=== PATIENT | male | born 1970 | race Caucasian/White ===

== ENCOUNTER 2020-06-02 09:56 | Outpatient (CLI) | payer BC, SELFPAY ==
[2020-06-02 10:20] LABS: Basophils Percent Auto 0.5 % (0.2-1.2); Eosinophils Absolute Auto 0.3 K/mm3 (0-0.3); Eosinophils Percent Auto 4.9 % (0-4.4); Hematocrit 41.6 % (42.0-52.0); Hemoglobin 13.9 g/dL (14.0-18.0); Immature Granulocyte Absolute 0.02 K/mm3 (0.00-0.031); Immature Granulocyte Percent A 0.4 % (0-0.5); Lymphocytes Absolute Auto 1.19 K/mm3 (0.9-3.2); Mean Corpuscular HGB Conc 33.4 g/dl (32-36); Mean Corpuscular Hemoglobin 30.5 pg (26-34); Mean Corpuscular Volume 91.4 fl (80-100); Mean Platelet Volume 8.7 fl (7.4-10.4); Monocytes Absolute Auto 0.4 K/mm3 (0.1-0.6); Monocytes Percent Auto 6.3 % (2.6-8.5); Neutrophils Absolute Auto 3.8 K/mm3 (1.3-6.7); Neutrophils Percent Auto 66.9 % (45.5-73.1); Platelet Count Result 271 k/mm3 (150-375); Red Blood Count 4.55 M/mm3 (4.6-6.20); Red Cell Distribution Width 12.8 % (11.5-14.5); White Blood Count 5.7 K/mm3 (4.5-10.0)
[2020-06-02 12:31] LABS: Alanine Aminotransferase 74 U/L (4-50); Albumin Level 4.8 g/dL (3.5-5.1); Alkaline Phosphatase 76 U/L (38-126); Aspartate Amino Transferase 55 U/L (17-59); Bilirubin,Total 0.5 mg/dL (0.2-1.3); Blood Urea Nitrogen 15 mg/dL (9-20); Calcium 9.4 mg/dL (8.4-10.2); Carbon Dioxide 25 mmol/L (22-30); Chloride 104 mmol/L (98-107); Estimated Glomerular Filt Rate > 60; Glucose 115 mg/dL (75-110); Potassium 4.4 mmol/L (3.4-5.0); Sodium 138 mmol/L (137-145)
[2020-06-02 13:33] LABS: Folic Acid > 20.0 ng/mL (2.76->20)
== END 2020-06-02 09:57 | disposition home or self-care (01) ==
PROVIDERS: PCP Internal Medicine; Visit Provider Internal Medicine Hematology & Oncology
DX: C76.0 Malignant neoplasm of head, face and neck (principal)
CPT/HCPCS: 36415; 80053; 82607; 82746; 85025

== ENCOUNTER → 2020-10-18 08:57 | Outpatient (CLI) | payer BC, SELFPAY ==
--- NOTE | ~2020-10-18 | CT_ITS ---
EXAMINATION: CT soft tissue neck chest w DATE: 10/18/2020 09:49 INDICATION: Base of tongue cancer. TECHNIQUE: Computed tomography (CT) of the neck and chest was performed with 75 mL Omnipaque-350 intr avenous contrast. Automated exposure control and iterative reconstruction technique were employed. Th e dose-length product was 1010.05 mGy-cm. COMPARISON: Neck CT 11/10/2019, neck and chest CT 08/19/2018 FINDINGS: NECK CT: There are surgical clips in right neck. There are no pathologically enlarged lymph nodes. Th ere is fat stranding of the neck, likely changes of radiation therapy. There is 0% stenosis of the pr oximal internal carotid arteries relative to normal distal artery lumen diameters. The mastoid air ce lls are normal. There is mild mucosal thickening in the ethmoid sinuses. There is mild cervical spond ylosis. CHEST CT: There is mild atelectasis in the lungs. There is a 6 mm nodule in right lower lobe, stable from 08/19/2018 consistent with granulomatous disease. No pleural effusion. The heart size is normal. No pericardial effusion. There is mild thoracic spondylosis. IMPRESSION: 1. No evidence of metastatic disease. Reviewed, dictated and finalized at location A. 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
== END ==
PROVIDERS: PCP Internal Medicine; Visit Provider Otolaryngology
DX: Z85.818 Personal history of malignant neoplasm of other sites of lip, oral cavity, and pharynx (principal)
CPT/HCPCS: 70491; 71260; Q9967

== ENCOUNTER 2020-11-01 10:28 | Outpatient (CLI) | payer BC, SELFPAY ==
[2020-11-01 10:43] LABS: Basophils Percent Auto 0.5 % (0.2-1.2); Eosinophils Absolute Auto 0.3 K/mm3 (0-0.3); Eosinophils Percent Auto 5.1 % (0-4.4); Hematocrit 41.4 % (42.0-52.0); Hemoglobin 13.9 g/dL (14.0-18.0); Immature Granulocyte Absolute 0.01 K/mm3 (0.00-0.031); Immature Granulocyte Percent A 0.2 % (0-0.5); Lymphocytes Absolute Auto 1.38 K/mm3 (0.9-3.2); Lymphocytes Percent Auto 24.2 % (18.3-44.2); Mean Corpuscular HGB Conc 33.6 g/dl (32-36); Mean Corpuscular Hemoglobin 31.1 pg (26-34); Mean Corpuscular Volume 92.6 fl (80-100); Mean Platelet Volume 8.7 fl (7.4-10.4); Monocytes Absolute Auto 0.3 K/mm3 (0.1-0.6); Monocytes Percent Auto 5.3 % (2.6-8.5); Neutrophils Absolute Auto 3.7 K/mm3 (1.3-6.7); Neutrophils Percent Auto 64.7 % (45.5-73.1); Platelet Count Result 263 k/mm3 (150-375); Red Blood Count 4.47 M/mm3 (4.6-6.20); Red Cell Distribution Width 12.6 % (11.5-14.5); White Blood Count 5.7 K/mm3 (4.5-10.0)
[2020-11-01 12:29] LABS: Alanine Aminotransferase 89 U/L (4-50); Albumin Level 4.4 g/dL (3.5-5.1); Alkaline Phosphatase 70 U/L (38-126); Anion Gap 9 mmol/L (8-16); Aspartate Amino Transferase 61 U/L (17-59); Bilirubin,Total 0.6 mg/dL (0.2-1.3); Blood Urea Nitrogen 12 mg/dL (9-20); Calcium 9.4 mg/dL (8.4-10.2); Carbon Dioxide 29 mmol/L (22-30); Chloride 103 mmol/L (98-107); Estimated Glomerular Filt Rate > 60; Glucose 126 mg/dL (75-110); Potassium 4.2 mmol/L (3.4-5.0); Sodium 141 mmol/L (137-145)
[2020-11-01 13:36] LABS: Folic Acid > 20.0 ng/mL (2.76->20); Vitamin B12 > 1000.0 pg/mL (239-931)
== END 2020-11-01 10:29 | disposition home or self-care (01) ==
LOC: ANHLAB 10:30
PROVIDERS: PCP Internal Medicine; Visit Provider Internal Medicine Hematology & Oncology
DX: C76.0 Malignant neoplasm of head, face and neck (principal)
CPT/HCPCS: 36415; 80053; 82607; 82746; 85025

== ENCOUNTER 2021-05-14 15:12 | Outpatient (CLI) | payer BC, SELFPAY ==
[2021-05-14 15:27] LABS: Basophils Percent Auto 0.6 % (0.2-1.2); Eosinophils Absolute Auto 0.3 K/mm3 (0-0.3); Eosinophils Percent Auto 4.8 % (0-4.4); Hematocrit 42.2 % (42.0-52.0); Hemoglobin 14.2 g/dL (14.0-18.0); Immature Granulocyte Absolute 0.02 K/mm3 (0.00-0.031); Immature Granulocyte Percent A 0.3 % (0-0.5); Mean Corpuscular HGB Conc 33.6 g/dl (32-36); Mean Corpuscular Hemoglobin 30.9 pg (26-34); Mean Corpuscular Volume 91.9 fl (80-100); Mean Platelet Volume 8.4 fl (7.4-10.4); Monocytes Absolute Auto 0.4 K/mm3 (0.1-0.6); Monocytes Percent Auto 5.2 % (2.6-8.5); Neutrophils Absolute Auto 4.6 K/mm3 (1.3-6.7); Neutrophils Percent Auto 65.1 % (45.5-73.1); Platelet Count Result 269 k/mm3 (150-375); Red Blood Count 4.59 M/mm3 (4.6-6.20); Red Cell Distribution Width 12.2 % (11.5-14.5); White Blood Count 7.1 K/mm3 (4.5-10.0)
[2021-05-14 15:30] LABS: Blood Urea Nitrogen 12 mg/dL (8-26); Carbon Dioxide 26 mmol/L (22-30); Chloride 103 mmol/L (98-109); Estimated Glomerular Filt Rate > 60; Glucose 112 mg/dL (70-105); Potassium 3.9 mmol/L (3.5-4.9); Sodium 143 mmol/L (138-146)
[2021-05-14 16:44] LABS: Alanine Aminotransferase 41 U/L (4-50); Albumin Level 4.5 g/dL (3.5-5.1); Alkaline Phosphatase 71 U/L (38-126); Anion Gap 9 mmol/L (8-16); Aspartate Amino Transferase 37 U/L (17-59); Bilirubin,Total 0.4 mg/dL (0.2-1.3); Blood Urea Nitrogen 12 mg/dL (9-20); Calcium 9.4 mg/dL (8.4-10.2); Carbon Dioxide 26 mmol/L (22-30); Chloride 106 mmol/L (98-107); Estimated Glomerular Filt Rate > 60; Glucose 109 mg/dL (75-110); Potassium 4.2 mmol/L (3.4-5.0); Sodium 141 mmol/L (137-145)
== END 2021-05-14 15:13 | disposition home or self-care (01) ==
LOC: ANHLAB 15:15
PROVIDERS: PCP Internal Medicine; Visit Provider Internal Medicine Hematology & Oncology
DX: C76.0 Malignant neoplasm of head, face and neck (principal)
CPT/HCPCS: 36415; 80048; 80053; 85025

== ENCOUNTER 2021-06-06 12:30 | Outpatient (RCR) | payer BC, SELFPAY ==
--- NOTE | 2021-05-17 11:14 | PTOPEVAL ---
PHYSICAL THERAPY EVALUATION AND PLAN OF CARE 05-17-21 Thank you for referring Robert Grimaldo to [facility] for the diagnosis of BPPV/vestibular rehab. Robert is scheduled to be seen for therapy? 1-2 x/week for weeks. Please review, sign, date and return this plan of care MK. I agree with and certify that the following plan of care is medically necessary. 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 Cardiovascular History Hx Hypercholesterolemia Yes: meds Respiratory History Hx Respiratory Disorders No Significant History Gastrointestinal History Hx Gastrointestinal Disorders No Significant History Musculoskeletal History Hx Arthritis Yes: B hip pain and arthritis Hx Other Musculoskeletal Disorders Yes: pain in neck and shoulders from cancer surgery Endocrine History Hx Hypothyroidism Yes: meds HEENT History Hx Other HEENT Disorders Yes: 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 Other History Hx Cancer Yes: excision of R neck cancer - radiation and chemo therapy Hx Radiation Therapy Yes Hx Other Medical Conditions Yes: lymphedema of head and neck Evaluation Information Problem Diagnosis BPPV/ vestibular therapy Onset March 2021 Prior Level of Function Activity Level (Last 3 Months) Occupation not working outside of home Home Setting Living Situation With Spouse Comments Additional Prior Level of Function due to dizziness, cannot bend Comments over to do yard work, have to be careful with walking and doing home activities Pain Assessment Timing of Pain Assessment Timing of Pain Assessment Assessment Pain Scale Pain Scale Used Numeric (1 - 10) Self Report Pain Assessment Bilateral Neck Reported Pain Level 4 Pain Frequency Chronic,Continuous Other Pain Description charley horse and pain in neck Pain Score Pain Score 4: Self Report Additional Pain Score Comments go to chiropractor for neck and shoulder pain; follow with pain management for
--- NOTE | 2021-06-08 08:23 | PCPTNOTE ---
LATE ENTRY: 06-06-21: Discussed pt with Mei Perez PTA. Talked with pt, he stated vertigo symptoms have resolved; will hold PT and cancel his appointments; his chart will be kept open and he is to call for additional treatments if needed prior to end of plan of care. Robert agreed to this.
--- NOTE | 2021-06-08 08:25 | PCPTNOTE ---
Mr. Grimaldo has received PT here in the past for lymphedema of head, neck and face. He continues to have issues with this and is not able to manage the lymphedema on his own at home. At the last session of PT he was educated on self massage, home exercises, skin care, compression garment and management of his chronic condition. He would benefit from a Flexitouch home intermittent compression pump to assist in managing his lymphedema. There is not a basic pump for the head/neck and face, so he would require the Flexitouch unit. Please contact me for any further questions. Kimberly Lugo, PT, [facility], [facility] [phone]
--- NOTE | 2021-06-29 14:21 | PCPTNOTE ---
PHYSICAL THERAPY DISCHARGE 06-29-21 Attending Provider: Lamin Milligan MD Patient:Robert Grimaldo Date of :1970 Mr. Grimaldo has received 4 PT sessions, for the diagnosis of vestibular rehab, from May 17 to June 06. At the last session, he stated he no longer had dizziness and wanted to cancel his remaining appointments, and he was to call if there were any further needs. No further contact from him, so he will be discharged at this time. The goals were achieved. Thank you for referring Robert to [facility]. Please review, sign, date and return this discharge summary MK. I have been updated about the patient's current status and I agree with discharge from the above service at this time. Referring Physician Date
== END 2021-07-04 15:26 | disposition home or self-care (01) ==
LOC: ANHPT 12:30
PROVIDERS: PCP Internal Medicine; Visit Provider Otolaryngology
DX: H81.10 Benign paroxysmal vertigo, unspecified ear (principal)
CPT/HCPCS: 97110; 97140; 97161

== ENCOUNTER → 2021-09-03 09:34 | Outpatient (CLI) | payer BC, SELFPAY ==
--- NOTE | ~2021-09-03 | XR_ITS ---
XR_[id number]_CR DATE: 09/03/2021 09:52 INDICATION: Neck pain TECHNIQUE: AP, open-mouth, lateral, swimmer views COMPARISON: 05/10/2019 cervical spine FINDINGS: C1 and C2 are normally aligned and the odontoid process is intact. No fracture or dislocation or locked facet or prevertebral soft tissue swelling. There is mild degenerative change. IMPRESSION: Mild degenerative change; no fracture or dislocation Reviewed, dictated and finalized at Location A. Reviewed, dictated and finalized at location B.
== END ==
PROVIDERS: PCP Internal Medicine; Visit Provider Nurse Practitioner Family
DX: M54.2 Cervicalgia (principal)
CPT/HCPCS: 72040

== ENCOUNTER 2021-10-29 09:28 | Outpatient (CLI) | payer BC, SELFPAY ==
--- NOTE | ~2021-10-29 | CT_ITS ---
EXAMINATION: CT soft tissue neck w con DATE: 10/29/2021 10:13 INDICATION: Head and neck cancer. TECHNIQUE: Computed tomography (CT) of the neck was performed with 75 mL Omnipaque-350 intravenous co ntrast. Automated exposure control and iterative reconstruction technique were employed. The dose-lobo gth product was 590.17 mGy-cm. COMPARISON: Neck CT 10/18/2020 FINDINGS: There are surgical clips in right neck. There is fat stranding in the neck, consistent with changes of surgery and radiation therapy. There is plaque in the proximal internal carotid arteries with 0% stenosis relative to normal distal artery lumen diameters. There is mild mucosal thickening i n the ethmoid sinuses. There is a small right mastoid effusion. There is mild cervical spondylosis. IMPRESSION: 1. No evidence of metastatic disease. Reviewed, dictated and finalized at location A. 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
== END 2021-10-29 09:29 | disposition home or self-care (01) ==
PROVIDERS: PCP Internal Medicine; Visit Provider Internal Medicine Hematology & Oncology
DX: C76.0 Malignant neoplasm of head, face and neck (principal)
CPT/HCPCS: 70491; Q9967

== ENCOUNTER 2021-11-07 09:47 | Outpatient (CLI) | payer BC, SELFPAY ==
[2021-11-07 10:12] LABS: Basophils Absolute Auto 0.1 K/mm3 (0.0-0.1); Basophils Percent Auto 0.9 % (0.2-1.2); Eosinophils Absolute Auto 0.3 K/mm3 (0-0.3); Eosinophils Percent Auto 6.2 % (0-4.4); Hemoglobin 14.1 g/dL (14.0-18.0); Immature Granulocyte Absolute 0.01 K/mm3 (0.00-0.031); Immature Granulocyte Percent A 0.2 % (0-0.5); Lymphocytes Absolute Auto 1.15 K/mm3 (0.9-3.2); Lymphocytes Percent Auto 21.5 % (18.3-44.2); Mean Corpuscular HGB Conc 32.8 g/dl (32-36); Mean Corpuscular Hemoglobin 31.4 pg (26-34); Mean Corpuscular Volume 95.8 fl (80-100); Mean Platelet Volume 8.4 fl (7.4-10.4); Monocytes Absolute Auto 0.3 K/mm3 (0.1-0.6); Neutrophils Absolute Auto 3.5 K/mm3 (1.3-6.7); Neutrophils Percent Auto 65.2 % (45.5-73.1); Platelet Count Result 271 k/mm3 (150-375); Red Blood Count 4.49 M/mm3 (4.6-6.20); Red Cell Distribution Width 12.3 % (11.5-14.5); White Blood Count 5.4 K/mm3 (4.5-10.0)
[2021-11-07 10:16] LABS: Blood Urea Nitrogen 15 mg/dL (8-26); Carbon Dioxide 27 mmol/L (22-30); Chloride 103 mmol/L (98-109); Estimated Glomerular Filt Rate > 60; Glucose 125 mg/dL (70-105); Potassium 4.4 mmol/L (3.5-4.9); Sodium 143 mmol/L (138-146)
[2021-11-07 21:20] LABS: Alanine Aminotransferase 60 U/L (4-50); Albumin Level 4.4 g/dL (3.5-5.1); Alkaline Phosphatase 75 U/L (38-126); Anion Gap 12 mmol/L (8-16); Aspartate Amino Transferase 50 U/L (17-59); Bilirubin,Total 0.5 mg/dL (0.2-1.3); Blood Urea Nitrogen 16 mg/dL (9-20); Calcium 9.1 mg/dL (8.4-10.2); Carbon Dioxide 24 mmol/L (22-30); Chloride 104 mmol/L (98-107); Estimated Glomerular Filt Rate > 60; Glucose 128 mg/dL (65-110); Potassium 4.5 mmol/L (3.4-5.0); Sodium 140 mmol/L (137-145)
== END 2021-11-07 09:48 | disposition home or self-care (01) ==
LOC: ANHLAB 09:49
PROVIDERS: Visit Provider Internal Medicine Hematology & Oncology
DX: C76.0 Malignant neoplasm of head, face and neck (principal)
CPT/HCPCS: 36415; 80053; 85025

== ENCOUNTER → 2021-11-08 09:18 | Outpatient (CLI) | payer BC, SELFPAY ==
--- NOTE | ~2021-11-08 | CT_ITS ---
EXAMINATION: CT abdomen wo con DATE: 11/08/2021 09:32 INDICATION: Left upper quadrant and epigastric pain TECHNIQUE: Computed tomography (CT) of the abdomen was performed without intravenous contrast. The do se-length product (DLP) was 835.39 mGy-cm. Automated exposure control and iterative reconstruction te chnique were employed. COMPARISON: 06/08/2019 FINDINGS: A stable 6 mm nodule of right lower lobe is consistent with old granulomatous disease. Ther e is mild atelectasis of the visualized lung bases. The heart size is normal. The liver, spleen, panc reas, gallbladder, and adrenal glands are normal. There are no pathologically enlarged abdominal lymp h nodes. There is no free intraperitoneal gas or evidence of bowel obstruction. IMPRESSION: 1. No CT correlate for the patient's symptoms. Reviewed, dictated and finalized at location A. 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
== END ==
PROVIDERS: PCP Internal Medicine; Visit Provider Internal Medicine
DX: R10.9 Unspecified abdominal pain (principal)
CPT/HCPCS: 74150

== ENCOUNTER 2022-05-08 09:04 | Outpatient (CLI) | payer BC, SELFPAY ==
[2022-05-08 09:24] LABS: Basophils Percent Auto 0.4 % (0.2-1.2); Eosinophils Absolute Auto 0.3 K/mm3 (0-0.3); Eosinophils Percent Auto 4.2 % (0-4.4); Hematocrit 41.1 % (42.0-52.0); Hemoglobin 13.6 g/dL (14.0-18.0); Immature Granulocyte Absolute 0.03 K/mm3 (0.00-0.031); Immature Granulocyte Percent A 0.4 % (0-0.5); Lymphocytes Absolute Auto 1.25 K/mm3 (0.9-3.2); Lymphocytes Percent Auto 18.7 % (18.3-44.2); Mean Corpuscular HGB Conc 33.1 g/dl (32-36); Mean Corpuscular Hemoglobin 30.8 pg (26-34); Mean Corpuscular Volume 93.2 fl (80-100); Mean Platelet Volume 8.8 fl (7.4-10.4); Monocytes Absolute Auto 0.4 K/mm3 (0.1-0.6); Monocytes Percent Auto 6.4 % (2.6-8.5); Neutrophils Absolute Auto 4.7 K/mm3 (1.3-6.7); Neutrophils Percent Auto 69.9 % (45.5-73.1); Platelet Count Result 267 k/mm3 (150-375); Red Blood Count 4.41 M/mm3 (4.6-6.20); Red Cell Distribution Width 12.6 % (11.5-14.5); White Blood Count 6.7 K/mm3 (4.5-10.0)
[2022-05-08 09:28] LABS: Blood Urea Nitrogen 13 mg/dL (8-26); Carbon Dioxide 25 mmol/L (22-30); Chloride 104 mmol/L (98-109); Estimated Glomerular Filt Rate > 60; Glucose 115 mg/dL (70-105); Sodium 141 mmol/L (138-146)
[2022-05-08 10:22] LABS: Alanine Aminotransferase 46 U/L (6-50); Albumin Level 4.4 g/dL (3.5-5.1); Alkaline Phosphatase 79 U/L (38-126); Anion Gap 6 mmol/L (8-16); Aspartate Amino Transferase 39 U/L (17-59); Bilirubin,Total 0.4 mg/dL (0.2-1.3); Blood Urea Nitrogen 13 mg/dL (9-20); Calcium 8.9 mg/dL (8.4-10.2); Carbon Dioxide 25 mmol/L (22-30); Chloride 107 mmol/L (98-107); Estimated Glomerular Filt Rate > 60; Glucose 113 mg/dL (65-110); Sodium 138 mmol/L (137-145)
== END 2022-05-08 09:05 | disposition home or self-care (01) ==
PROVIDERS: PCP Internal Medicine; Visit Provider Internal Medicine Hematology & Oncology
DX: C76.0 Malignant neoplasm of head, face and neck (principal)
CPT/HCPCS: 36415; 80047; 80053; 85025

== ENCOUNTER 2022-10-13 11:16 | Emergency (ER) | payer BC, SELFPAY ==
--- NOTE | ~2022-10-13 | XR_ITS ---
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 RESULT: Lines, tubes, and devices: None. Lungs and pleura: No focal consolidation or pneumothorax. Linear scar in the left lung base. Cardiomediastinal silhouette: Stable. Other: No acute osseous or upper abdominal finding. IMPRESSION: No acute cardiopulmonary process. Reviewed, dictated and finalized at location K. [place] WIRELESS SALES REPRESENTATIVE
--- NOTE | 2022-10-13 13:25 | ED.URI ---
HPI - URI/Sore Throat General Chief Complaint: Upper Respiratory Infection Stated Complaint: Fever,Sore Throat,Headache,Diarrhea Source: patient Mode of arrival: ambulatory Limitations: no limitations History of Present Illness HPI Narrative: 52-year-old male presents to [facility] with complaints of fevers to 102, sore throat, postnasal drip, runny nose, nasal congestion nonproductive cough for the past 3 days. Patient's was recently treated for a sinus infection. Patient has been taking [id number] DayQuil and NyQuil with minimal relief. Patient reports history of neck cancer which was diagnosed approximately 5 years ago. Patient denies shortness of breath, wheezing, nausea, vomiting or diarrhea. Patient denies recent trauma. Patient is nonsmoker. MD elicited complaint: fever, cough, rhinorrhea and nasal congestion Onset (ago): day(s) (3) Able to tolerate fluids by mouth: Yes Context: sick contacts Treatments prior to arrival: cold medicine Related Data Home Medications Medication Instructions Recorded Confirmed atorvastatin 10 mg tablet 10 mg PO DAILY 04/27/21 10/13/22 levothyroxine 50 mcg capsule 50 mcg PO DAILY 04/27/21 10/13/22 pregabalin 75 mg capsule (Lyrica) 75 mg PO TID 04/27/21 10/13/22 diclofenac sodium 75 mg 75 mg PO BID 06/07/21 10/13/22 tablet,delayed release omeprazole 40 mg capsule,delayed 40 mg PO DAILY 06/07/21 10/13/22 release tizanidine 2 mg tablet 2 mg PO DAILY 10/13/22 10/13/22 Allergies Allergy/AdvReac Type Severity Reaction Status Date / Time No Known Allergies Allergy Verified 10/13/22 12:59 Review of Systems Constitutional: Constitutional: Denies chills, Denies fatigue, Reports fever(s) and Denies weakness ENT: Denies vertigo, Denies dizziness, Denies epistaxis and Reports nasal congestion Respiratory: Respiratory: Reports cough, Denies dyspnea and Denies wheezing Gastrointestinal: Gastrointestinal: Denies abdominal pain, Denies diarrhea, Denies nausea and Denies vomiting Integumentary/Breasts: Skin/Breast: Denies rash Allergic/Immunologic: Allergic/Immunologic: Denies lip swelling, Denies throat swelling, Denies tongue swelling and Denies wheezing PMFSH Past Medical History Medical History History of basal cell carcinoma History of squamous cell carcinoma Family History Family History Mother Breast cancer Father Malignant tumor of colon Social History Social History Smoking status: Former smoker Smoking end date: 11/24/05 Alcohol intake: never Comments At time of signature, I agree with nursing past medical, surgical, social and family history. There is no relevant family history pertinent to the presenting complaint. Exam Const: General: healthy appearing Nutritional Appearance: well nourished Orientation/consciousness: patient oriented x3 Limitations: no limitations HENMT: Ears: external ears normal and TM's normal bilaterally Face and sinus: normal facial exam Mouth: Yes Normal oral and palatal mucosa present Throat: posterior oropharynx normal and uvula midline Other: Mild bilateral nasal congestion noted Neck: Other: Healed scar noted to right-sided neck Resp: Effort & Inspection: normal respiratory effort and not labored Other: Very mild expiratory wheeze noted to right lower lobe Cardio: Rate: regular rate Rhythm: regular rhythm Heart sounds: no murmurs Skin: General skin exam: normal color Rashes: no rashes Wounds: no wounds Neuro: General: patient oriented x3 Speech: normal speech Gait exam (Neuro): Normal gait present Psych: Mental Status: mental status grossly normal Affect: normal affect Attitude: cooperative Course Course Level of Care: Express Care Visit Vital Signs Vital signs: Vital Signs Temperature 36.3 C L 10/13/22 13:31 Puls
[2022-10-13 13:31] VITALS: BP 137/90; PULSE 88; RESP 20; TEMP 36.3; O2SAT 98
== END 2022-10-13 14:30 | disposition home or self-care (01) ==
PROVIDERS: Emergency Provider Nurse Practitioner Family; PCP Internal Medicine
DX: U07.1 COVID-19 (principal); Z85.828 Personal history of other malignant neoplasm of skin; Z87.891 Personal history of nicotine dependence
CPT/HCPCS: 71046; 87426; 87804; 99213; C9803; G0463

== ENCOUNTER 2022-10-28 08:46 | Outpatient (CLI) | payer BC, SELFPAY ==
--- NOTE | ~2022-10-28 | CT_ITS ---
EXAMINATION: CT soft tissue neck w con DATE: 10/28/2022 09:17 INDICATION: Head and neck cancer. TECHNIQUE: Computed tomography (CT) of the neck was performed with 75 mL Omnipaque-350 intravenous co ntrast. Automated exposure control and iterative reconstruction technique were employed. The dose-lobo gth product was 621.68 mGy-cm. COMPARISON: CT cervical spine 10/29/2021, chest CT 10/18/20 FINDINGS: There is a 6 mm nodule in left lung upper lobe, new from . There is mild atelectasis bilaterally. There is a chronic 3 mm nodule in right upper lobe. There is a 6 mm nodule in right uppe r lobe that is new from 10/18/20 and not included on 10/29/21. Partially visualized is a 9 mm nodule i n left lower lobe, new from 10/18/2020. There are surgical clips in right neck. There are no patholog ically enlarged lymph nodes. There is mucosal thickening in the paranasal sinuses. There is 0% stenos is of the proximal internal carotid arteries relative to normal distal artery lumen diameters. There is a trace left mastoid effusion. There is mild cervical spondylosis. IMPRESSION: 1. Worsened pulmonary nodules measuring up to 9 mm, which may be infection or metastatic disease. Con telecommunicator supervisor noncontrast chest CT. Reviewed, dictated and finalized at location E. HMAKER APPRENTICE IMPRESSION: 1. Worsened pulmonary nodules measuring up to 9 mm, which may be infection or m etastatic disease. Consider noncontrast chest CT.
== END 2022-10-28 08:47 | disposition home or self-care (01) ==
PROVIDERS: PCP Internal Medicine; Visit Provider Internal Medicine Hematology & Oncology
DX: C76.0 Malignant neoplasm of head, face and neck (principal)
CPT/HCPCS: 70491; Q9967

== ENCOUNTER 2022-11-04 11:17 | Outpatient (CLI) | payer BC, SELFPAY ==
[2022-11-04 11:39] LABS: Basophils Percent Auto 0.7 % (0.2-1.2); Eosinophils Absolute Auto 0.3 K/mm3 (0-0.3); Eosinophils Percent Auto 4.5 % (0-4.4); Hematocrit 40.9 % (42.0-52.0); Hemoglobin 13.8 g/dL (14.0-18.0); Immature Granulocyte Absolute 0.02 K/mm3 (0.00-0.031); Immature Granulocyte Percent A 0.4 % (0-0.5); Lymphocytes Absolute Auto 1.34 K/mm3 (0.9-3.2); Lymphocytes Percent Auto 24.1 % (18.3-44.2); Mean Corpuscular HGB Conc 33.7 g/dl (32-36); Mean Corpuscular Hemoglobin 30.9 pg (26-34); Mean Corpuscular Volume 91.7 fl (80-100); Mean Platelet Volume 8.5 fl (7.4-10.4); Monocytes Absolute Auto 0.4 K/mm3 (0.1-0.6); Monocytes Percent Auto 7.2 % (2.6-8.5); Neutrophils Absolute Auto 3.5 K/mm3 (1.3-6.7); Neutrophils Percent Auto 63.1 % (45.5-73.1); Platelet Count Result 295 k/mm3 (150-375); Red Blood Count 4.46 M/mm3 (4.6-6.20); Red Cell Distribution Width 12.2 % (11.5-14.5); White Blood Count 5.6 K/mm3 (4.5-10.0)
[2022-11-04 11:47] LABS: Blood Urea Nitrogen 15 mg/dL (8-26); Carbon Dioxide 28 mmol/L (22-30); Chloride 104 mmol/L (98-109); Estimated Glomerular Filt Rate > 60; Glucose 106 mg/dL (70-105); Ionized Calcium (POC) 1.19 mmol/L (1.11-1.31); Potassium 4.4 mmol/L (3.5-4.9); Sodium 139 mmol/L (138-146)
[2022-11-04 12:39] LABS: Alanine Aminotransferase 33 U/L (6-50); Albumin Level 4.6 g/dL (3.5-5.1); Alkaline Phosphatase 85 U/L (38-126); Anion Gap 6 mmol/L (8-16); Aspartate Amino Transferase 34 U/L (17-59); Bilirubin,Total 0.6 mg/dL (0.2-1.3); Blood Urea Nitrogen 15 mg/dL (9-20); Carbon Dioxide 28 mmol/L (22-30); Chloride 102 mmol/L (98-107); Estimated Glomerular Filt Rate > 60; Glucose 106 mg/dL (65-110); Potassium 4.4 mmol/L (3.4-5.0); Sodium 136 mmol/L (137-145)
== END 2022-11-04 11:18 | disposition home or self-care (01) ==
LOC: ANHLAB 11:18
PROVIDERS: PCP Internal Medicine; Visit Provider Internal Medicine Hematology & Oncology
DX: C76.0 Malignant neoplasm of head, face and neck (principal)
CPT/HCPCS: 36415; 80047; 80053; 85025

== ENCOUNTER 2022-11-08 08:25 | Outpatient (CLI) | payer BC, SELFPAY ==
--- NOTE | ~2022-11-08 | CT_ITS ---
CT Scan of the Chest without Contrast: Clinical Indication: Lung mass Technique: Contiguous sections were acquired throughout the chest without intravenous contrast. Dose reduction technique was used on this scan by utilizing automated exposure control and iterative recon struction technique. The dose-length product (DLP) was 513.66 mGy-cm. COMPARISON: 10/18/2020 Findings: There is no evidence of any significant mediastinal, hilar or axillary lymphadenopathy. The mediastin al soft tissues appear normal. There is no evidence of pleural or pericardial effusion. Stable linear scarring right upper lobe. Stable 5 mm noncalcified pulmonary nodule in the right lower lobe (series 4 image 67). Additional linear scarring at the bilateral lung bases is similar to prior exam. Images through the upper abdomen reveal no abnormalities. Impression: No significant abnormality seen. 5 mm right lower lobe pulmonary nodule stable since 10/18/2020. Stability over this time intervals co mpatible with benignity. Reviewed, dictated and finalized at location [] PROFESSOR Impression: No significant abnormality seen. 5 mm right lower lobe pulmonary nodule stable since 10/18/2020. Stability over this time intervals compatible with benignity.
== END 2022-11-08 08:26 | disposition home or self-care (01) ==
PROVIDERS: PCP Internal Medicine; Visit Provider Internal Medicine Hematology & Oncology
DX: R91.8 Other nonspecific abnormal finding of lung field (principal)
CPT/HCPCS: 71250

== ENCOUNTER 2023-05-12 10:05 | Outpatient (CLI) | payer BC, SELFPAY ==
[2023-05-12 10:26] LABS: Basophils Percent Auto 0.8 % (0.2-1.2); Eosinophils Absolute Auto 0.3 K/mm3 (0-0.3); Eosinophils Percent Auto 5.6 % (0-4.4); Hemoglobin 14.6 g/dL (14.0-18.0); Immature Granulocyte Absolute 0.02 K/mm3 (0.00-0.031); Immature Granulocyte Percent A 0.4 % (0-0.5); Lymphocytes Absolute Auto 1.08 K/mm3 (0.9-3.2); Lymphocytes Percent Auto 21.4 % (18.3-44.2); Mean Corpuscular Volume 91.3 fl (80-100); Mean Platelet Volume 8.6 fl (7.4-10.4); Monocytes Absolute Auto 0.4 K/mm3 (0.1-0.6); Monocytes Percent Auto 7.7 % (2.6-8.5); Neutrophils Absolute Auto 3.2 K/mm3 (1.3-6.7); Neutrophils Percent Auto 64.1 % (45.5-73.1); Platelet Count Result 256 k/mm3 (150-375); Red Blood Count 4.71 M/mm3 (4.6-6.20); Red Cell Distribution Width 12.5 % (11.5-14.5)
[2023-05-12 16:11] LABS: Alanine Aminotransferase 44 U/L (6-50); Albumin Level 4.8 g/dL (3.5-5.1); Alkaline Phosphatase 87 U/L (38-126); Anion Gap 8 mmol/L (8-16); Aspartate Amino Transferase 43 U/L (17-59); Bilirubin,Total 0.8 mg/dL (0.2-1.3); Blood Urea Nitrogen 18 mg/dL (9-20); Calcium 8.9 mg/dL (8.4-10.2); Carbon Dioxide 27 mmol/L (22-30); Chloride 106 mmol/L (98-107); Estimated Glomerular Filt Rate > 60; Glucose 109 mg/dL (65-110); Potassium 4.2 mmol/L (3.4-5.0); Sodium 141 mmol/L (137-145)
[2023-05-12 17:26] LABS: Folic Acid > 20.0 ng/mL (2.76->20)
== END 2023-05-12 10:06 | disposition home or self-care (01) ==
LOC: ANHLAB 10:07
PROVIDERS: PCP Internal Medicine; Visit Provider Internal Medicine Hematology & Oncology
DX: C76.0 Malignant neoplasm of head, face and neck (principal)
CPT/HCPCS: 36415; 80053; 82607; 82746; 85025

== ENCOUNTER 2023-12-03 09:15 | Emergency (ER) | payer BC, SELFPAY ==
--- NOTE | ~2023-12-03 | XR_ITS ---
XR_[id number]_CR DATE: 12/03/2023 09:52 INDICATION: Fall 6 days ago. Left upper lateral rib pain with inspiration TECHNIQUE: PA chest. 3 views of the left ribs. COMPARISON: 10/13/2022 2 view chest FINDINGS: There is mild infiltrate or atelectasis in the mid and lower lung zones. Normal heart size. No pleural effusion or pneumothorax. No left rib fracture or bone destruction is detected. Degenerative spurring of the thoracic and lumbar spine. IMPRESSION: No rib fracture is detected Reviewed, dictated and finalized at Location A. Reviewed, dictated and finalized at location B. 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
[2023-12-03 09:36] VITALS: BP 153/88; PULSE 68; RESP 16; TEMP 36.3; O2SAT 98
--- NOTE | 2023-12-03 10:08 | ED.GENADULT ---
HPI - General Adult General Chief complaint: Extremity Injury, Upper Stated complaint: fall,lt rib pain Time Seen by Provider: 12/03/23 09:41 Source: patient and RN notes reviewed Mode of arrival: ambulatory Limitations: no limitations History of Present Illness HPI narrative: Patient presents today complaining of a trip and fall on a sidewalk 6 days ago and onto his left ribs with lingering pain to this area. He has localized pain to the left upper lateral ribs, more into the axilla area. Pain increases with deep breath, cough, sneezing. Currently rates pain 5/10 and has tried no medication for symptoms prior to arrival. Denies shortness of breath. Related Data Home Medications Medication Instructions Recorded Confirmed atorvastatin 10 mg tablet 10 mg PO DAILY 04/27/21 12/03/23 levothyroxine 50 mcg capsule 50 mcg PO DAILY 04/27/21 12/03/23 pregabalin 75 mg capsule (Lyrica) 75 mg PO TID 04/27/21 10/13/22 diclofenac sodium 75 mg 75 mg PO BID 06/07/21 12/03/23 tablet,delayed release omeprazole 40 mg capsule,delayed 40 mg PO DAILY 06/07/21 12/03/23 release tizanidine 2 mg tablet 2 mg PO DAILY 10/13/22 10/13/22 pregabalin 75 mg capsule mg 12/03/23 12/03/23 Allergies Allergy/AdvReac Type Severity Reaction Status Date / Time No Known Allergies Allergy Verified 12/03/23 09:36 Review of Systems Review of Systems: CONSTITUTIONAL: Denies body aches, fever, chills, or sweats. EYES: Denies visual changes, redness, or discharge. ENT: Denies rhinorrhea, congestion, sore throat, or otalgia. CARDIOVASCULAR: Denies chest pain, palpitations, or edema. RESPIRATORY: Denies cough or dyspnea.+ left rib pain GASTROINTESTINAL: Denies abdominal pain, nausea, vomiting, or diarrhea. GENITOURINARY: Denies dysuria or hematuria. SKIN: Denies rash, itching, or wounds. MUSCULOSKELETAL: Denies back pain, joint pain, or myalgia. NEUROLOGIC: Denies headache, numbness, tingling, or weakness. PSYCH: Denies depression or anxiety. [facility] Past Medical History Medical History History of basal cell carcinoma History of squamous cell carcinoma Family History Family History Mother Breast cancer Father Malignant tumor of colon Social History Social History Smoking status: Former smoker Smoking end date: 11/24/05 Alcohol intake: never Comments At time of signature, I have reviewed and agree with nursing past medical, surgical, social and family history unless otherwise noted. Please see nursing chart for further information. There is no relevant family history pertinent to the presenting complaint Exam Narrative: GENERAL: Well-appearing, well-nourished, and in no acute distress. HEAD: Normocephalic, atraumatic. EYES: EOMI. No redness or drainage. Conjunctivae normal. ENT: Mucous membranes pink and moist. NECK: Normal AROM. CHEST: No respiratory distress. Clear to auscultation. Point tenderness to the left lateral chest area, into the axilla. No crepitus, edema, ecchymosis, or erythema noted. HEART: Regular rate and rhythm. No murmur appreciated. Normal peripheral pulses. EXTREMITIES: Normal range of motion. No edema. SKIN: Warm, dry, no rash. Capillary refill normal. Normal skin turgor. NEURO: No focal deficits. Alert and oriented x3. Gait steady. PSYCH: Normal affect. No signs of depression or anxiety. Course Course Level of Care: Express Care Visit Vital Signs Vital signs: Vital Signs Temperature 97.4 F L 12/03/23 09:36 Pulse Rate 68 12/03/23 09:36 Respiratory Rate 16 12/03/23 09:36 Blood Pressure 153/88 H 12/03/23 09:36 Pulse Oximetry 98 12/03/23 09:36 Oxygen Delivery Room Air 12/03/23 09:36 Temperature 97.4 F L 12/03/23 09:36 Pulse Rate 68 12/03/23 09:36 Respiratory Rate 16 12/03/23 09:3
== END 2023-12-03 10:25 | disposition home or self-care (01) ==
PROVIDERS: Emergency Provider Nurse Practitioner; PCP Internal Medicine
DX: S20.212A Contusion of left front wall of thorax, initial encounter (principal); Z79.899 Other long term (current) drug therapy; Z85.828 Personal history of other malignant neoplasm of skin; Z87.891 Personal history of nicotine dependence; W01.0XXA Fall on same level from slipping, tripping and stumbling without subsequent striking against object, initial encounter
CPT/HCPCS: 71101; 99213; G0463

== ENCOUNTER 2024-05-17 01:35 | Day surgery (SDC) | payer BC, SELFPAY ==
[2024-04-29 12:18] VITALS: BMI 35.4
[2024-05-17 08:09] VITALS: BP 152/96; PULSE 82; RESP 16; TEMP 36.2; O2SAT 98; BMI 35.2
[2024-05-17] MEDS: LACTATED RINGERS 1,000 ML 150 ML IV CONT (08:17)
--- NOTE | 2024-05-17 08:45 | WPDANESEPPF ---
Anes - Initial Pre Proc Eval Procedure: Operation Date: 05/17/24 09:30 Proposed Procedures p Colonoscopy - Farhat Michelle MD Date/Time: 05/17/24 08:45 Surgeon: Farhat Michelle MD Pre Op Diagnosis: Fam. hx. colon CA Patient Data Age: 54 Gender: M Height: 1.75 m Weight: 108.3 kg Last Vital Signs Temp 97.1 F L 05/17/24 08:09 Pulse 82 05/17/24 08:09 Resp 16 05/17/24 08:09 BP 152/96 H 05/17/24 08:09 Pulse Ox 98 05/17/24 08:09 O2 Del Method Room Air 05/17/24 08:09 Allergies Allergy/AdvReac Type Severity Reaction Status Date / Time No Known Allergies Allergy Verified 05/17/24 08:07 Home Medications Medication Instructions Recorded Confirmed Type atorvastatin 10 mg tablet 10 mg PO DAILY 04/27/21 05/17/24 History levothyroxine 50 mcg capsule 50 mcg PO DAILY 04/27/21 05/17/24 History pregabalin 75 mg capsule (Lyrica) 75 mg PO TID 04/27/21 05/17/24 History diclofenac sodium 75 mg 75 mg PO BID 06/07/21 05/17/24 History tablet,delayed release omeprazole 40 mg capsule,delayed 40 mg PO DAILY 06/07/21 05/17/24 History release pilocarpine HCl 5 mg tablet 5 mg PO DAILY #30 tabs 05/09/22 05/17/24 Rx Patient hx anesthesia problems: none Family hx anesthesia problems: none Results Review: All pre-operative results and documents have been reviewed as part of the pre-operative evaluation. [facility] Past Medical History Medical History History of basal cell carcinoma History of squamous cell carcinoma Family History Family History Mother Breast cancer Father Malignant tumor of colon Social History Social History Smoking packs per day: 0.5 Smoking cigarettes per day: 10.0 Years smoked: 10 Smoking pack-years: 5.00 Smoking status: Former smoker Tobacco type: cigarettes Smoking end date: 11/24/05 Alcohol intake: never Living arrangements: with family Spiritual care concerns: No Anes - Eval Final PreProcedure Day of Procedure 05/17/24 08:45 Patient weight: obese Heart: regular rate and rhythm Lungs: clear to auscultation Airway: Mallampati scale class II Neurological: alert and oriented Last oral intake: >/= 8 hours ASA classification: II Emergent: no Anesthetic plan: proceed Anesthesia type and monitoring: general GIVS and standard monitoring Results Review: All pre-operative results and documents have been reviewed as part of the pre-operative evaluation. Informed Consent: The patient's anesthetic plan and its attendant risks and benefits were discussed with the patient/family/POA. Questions were solicited and answers provided to the satisfaction of the patient/family/POA.
--- NOTE | 2024-05-17 09:09 | PM.HPGS ---
History of Present Illness History of Present Illness Consent: Risks, benefits, and alternatives have been discussed and questions answered. Patient agrees to proceed with procedure. Chief complaint: Fam. hx. colon CA Narrative: Robert Grimaldo is a 54 year old male here for colonoscopy, last one 2018, father of colon cancer Review of Systems Review of Systems: All systems reviewed & are unremarkable except as noted in HPI and below PMFSH Past Medical History Medical History (Updated 05/17/24 @ 09:10 by Farhat Michelle MD) Family history of colon cancer in father History of basal cell carcinoma History of squamous cell carcinoma Family History Family History Mother Breast cancer Father Malignant tumor of colon Social History Social History Smoking packs per day: 0.5 Smoking cigarettes per day: 10.0 Years smoked: 10 Smoking pack-years: 5.00 Smoking status: Former smoker Tobacco type: cigarettes Smoking end date: 11/24/05 Alcohol intake: never Living arrangements: with family Spiritual care concerns: No Meds Home Medications and Allergies Home Medications Medication Instructions Recorded Confirmed Type atorvastatin 10 mg tablet 10 mg PO DAILY 04/27/21 05/17/24 History levothyroxine 50 mcg capsule 50 mcg PO DAILY 04/27/21 05/17/24 History pregabalin 75 mg capsule (Lyrica) 75 mg PO TID 04/27/21 05/17/24 History diclofenac sodium 75 mg 75 mg PO BID 06/07/21 05/17/24 History tablet,delayed release omeprazole 40 mg capsule,delayed 40 mg PO DAILY 06/07/21 05/17/24 History release pilocarpine HCl 5 mg tablet 5 mg PO DAILY #30 tabs 05/09/22 05/17/24 Rx Allergies Allergy/AdvReac Type Severity Reaction Status Date / Time No Known Allergies Allergy Verified 05/17/24 08:07 Vital Signs Vital Signs - 24 hr 05/17/24 08:09 Temperature 97.1 F L Pulse Rate 82 Respiratory Rate 16 Blood Pressure 152/96 H Pulse Oximetry 98 Oxygen Delivery Room Air Exam Const: General: comfortable and no acute distress HENMT: Face/Nose/Sinus: Normal nares present Eyes: General: appearance normal, both eyes and all related structures Neck: Neck: no JVD Resp: Auscultation: clear to auscultation bilaterally Cardio: Rate: regular rate Rhythm: regular rhythm GI: Inspection: non-distended GI Palp: Yes Soft to palpation Skin: General skin exam: normal color Neuro: General: gait normal Speech: normal speech Extrem: General: normal to inspection Psych: Mental Status: mental status grossly normal Assessment and Plan Assessment and plan (1) Family history of colon cancer in father: Code(s): Z80.0 - Family history of malignant neoplasm of digestive organs Status: Acute Assessment and Plan: colonoscopy
[2024-05-17 09:26] VITALS: BP 123/78; PULSE 83; RESP 14; O2SAT 96
[2024-05-17 09:36] VITALS: BP 115/71; PULSE 76; RESP 17; O2SAT 96
[2024-05-17 09:46] VITALS: BP 136/82; PULSE 73; RESP 14; O2SAT 98
== END 2024-05-17 09:53 | disposition home or self-care (01) ==
PROVIDERS: PCP Internal Medicine; Visit Provider Internal Medicine Gastroenterology
PROC: 0DJD8ZZ Inspection of Lower Intestinal Tract, Via Natural or Artificial Opening Endoscopic (ICD-10-PCS; CPT 45378; principal; 2024-05-17 09:30)
DX: Z12.11 Encounter for screening for malignant neoplasm of colon (principal); K57.30 Diverticulosis of large intestine without perforation or abscess without bleeding; K64.8 Other hemorrhoids; Z80.0 Family history of malignant neoplasm of digestive organs; Z87.891 Personal history of nicotine dependence; E66.9 Obesity, unspecified; Z68.35 Body mass index [BMI] 35.0-35.9, adult
CPT/HCPCS: 45378; J2704; J7120

== ENCOUNTER 2024-06-17 12:36 | Outpatient (CLI) | payer BC, SELFPAY ==
[2024-06-17 12:48] LABS: Basophils Percent Auto 0.7 % (0.2-1.2); Eosinophils Absolute Auto 0.3 K/mm3 (0-0.3); Eosinophils Percent Auto 5.1 % (0-4.4); Hematocrit 42.2 % (42.0-52.0); Hemoglobin 14.1 g/dL (14.0-18.0); Immature Granulocyte Absolute 0.01 K/mm3 (0.00-0.031); Immature Granulocyte Percent A 0.2 % (0-0.5); Lymphocytes Absolute Auto 1.49 K/mm3 (0.9-3.2); Lymphocytes Percent Auto 25.5 % (18.3-44.2); Mean Corpuscular HGB Conc 33.4 g/dl (32-36); Mean Corpuscular Hemoglobin 30.5 pg (26-34); Mean Corpuscular Volume 91.1 fl (80-100); Mean Platelet Volume 8.5 fl (7.4-10.4); Monocytes Absolute Auto 0.4 K/mm3 (0.1-0.6); Monocytes Percent Auto 6.7 % (2.6-8.5); Neutrophils Absolute Auto 3.6 K/mm3 (1.3-6.7); Neutrophils Percent Auto 61.8 % (45.5-73.1); Platelet Count Result 273 k/mm3 (150-375); Red Blood Count 4.63 M/mm3 (4.6-6.20); Red Cell Distribution Width 12.3 % (11.5-14.5); White Blood Count 5.9 K/mm3 (4.5-10.0)
[2024-06-17 12:52] LABS: Blood Urea Nitrogen 12 mg/dL (8-26); Carbon Dioxide 27 mmol/L (22-30); Chloride 103 mmol/L (98-109); Estimated Glomerular Filt Rate > 60; Glucose 99 mg/dL (70-105); Ionized Calcium (POC) 1.14 mmol/L (1.11-1.31); Potassium 4.3 mmol/L (3.5-4.9); Sodium 141 mmol/L (138-146)
[2024-06-17 16:51] LABS: Alanine Aminotransferase 32 U/L (6-50); Albumin Level 4.7 g/dL (3.5-5.1); Alkaline Phosphatase 80 U/L (38-126); Anion Gap 11 mmol/L (4-12); Aspartate Amino Transferase 30 U/L (17-59); Bilirubin,Total 0.6 mg/dL (0.2-1.3); Blood Urea Nitrogen 13 mg/dL (9-20); Calcium 8.9 mg/dL (8.4-10.2); Carbon Dioxide 28 mmol/L (22-30); Chloride 100 mmol/L (98-107); Estimated Glomerular Filt Rate > 60; Glucose 98 mg/dL (65-110); Potassium 4.4 mmol/L (3.4-5.0); Sodium 139 mmol/L (137-145)
== END 2024-06-17 12:37 | disposition home or self-care (01) ==
LOC: ANHLAB 12:37
PROVIDERS: Internal Medicine Hematology & Oncology; PCP Internal Medicine; Visit Provider Nurse Practitioner Family
DX: C76.0 Malignant neoplasm of head, face and neck (principal)
CPT/HCPCS: 36415; 80047; 80053; 85025

== ENCOUNTER 2024-08-24 10:45 | Outpatient (CLI) | payer BC, SELFPAY ==
--- NOTE | ~2024-08-24 | CT_ITS ---
CT of the Abdomen and Pelvis: Indication: Abdominal pain Technique: 2.5 mm axial scans were obtained through the abdomen and pelvis following intravenous adm inistration of 100 cc of Omnipaque 350. Dose reduction technique was used on this scan by utilizing a utomated exposure control and iterative reconstruction technique. The dose-length product (DLP) was 1 146.63 mGy-cm. COMPARISON: 11/08/2021 Findings: Scans through the lung bases demonstrates stable 5 mm right lower lobe pulmonary nodule st able linear left basilar scarring.. The liver, spleen, pancreas, gallbladder, adrenals and kidneys are within normal limits. No evidence of aortic aneurysm. No lymphadenopathy. No bowel obstruction or bowel wall thickening. There is no evidence to suggest acute appendicitis. Images through the pelvis were performed. Urinary bladder unremarkable. No pelvic mass seen. No ascit es. Small fat-containing bilateral inguinal hernias present. Impression: Small fat-containing bilateral inguinal hernias. Stable 5 mm right lower lobe pulmonary nodule. Reviewed, dictated and finalized at [facility]. Impression: Small fat-containing bilateral inguinal hernias. Stable 5 mm right lower lobe pulmonary nodule.
== END 2024-08-24 10:46 | disposition home or self-care (01) ==
PROVIDERS: PCP Internal Medicine; Visit Provider Internal Medicine
DX: K40.20 Bilateral inguinal hernia, without obstruction or gangrene, not specified as recurrent (principal); R91.1 Solitary pulmonary nodule
CPT/HCPCS: 74177; Q9967

== ENCOUNTER 2025-06-23 13:06 | Outpatient (CLI) | payer BC, SELFPAY ==
--- OUTSIDE RECORDS SUMMARY | 2025-06-23 13:11 | XMS_ITS | Clinical Summary ---
Author Organization [facility] Address [address] [place] [address] Care Team Providers Care Flight Security Specialist Name Role Phone Robert Hernandez MD Primary Care Provider [phone] Allergies No known active allergies Medications diclofenac DR (VOLTAREN) 75 mg EC tablet diclofenac sodium 75 mg tablet,delayed release TK 1 T PO BID WF Active SF 5000 Plus 1.1 % cream USE ONCE A DAY AT REGULAR BRUSHIG. DO NOT RINSE FOR 30 MINUTES AFTER USE 0 Active levothyroxine (SYNTHROID) 50 mcg tablet TK 1 T PO QD 0 Active naltrexone (DEPADE) 50 mg tablet Take 1.5 mg by mouth daily Active omeprazole (PriLOSEC) 40 mg capsule TK 1 C PO QD 30 MIN AC 0 Active pilocarpine (SALAGEN) 5 mg tablet TK 1 T PO QD 0 Active pregabalin (LYRICA) 75 mg capsule TK ONE C PO Q 8 H 0 Active tiZANidine (ZANAFLEX) 2 mg tablet 0 Active atorvastatin (LIPITOR) 10 mg tablet 0 Active Active Problems Problem Noted Date Diagnosed Date Migraine without aura and wi thout status migrainosus, not intractable 09/08/2020 Assessment & Plan (10/06/2020 11:51 AM SHODER FILLER): Patient's history of episodic headaches with clinical features consistent with migraine without aura. MRI of the brain with without contrast given his previous history of head neck cancer is normal by report. He has had several opportunities she use sumatriptan is found with early intervention works reliably for him with good tolerability and success. He is in need of refill of medication. I have renewed his sumatriptan 100 mg b.i.d. p.r.n., and I plan to see him back in the office on an as-needed basis. Assessment & Plan (09/08/2020 2:02 PM CDT): Patient describes several months of episodic headache with clinical features suggesting migraine without aura. 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 He has tried cliq-was-tfhetag analgesics without success. 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 I will also prescribe him sumatriptan 100 mg b.i.d. p.r.n. to use for headache . I will see him back upon completion of study. Peripheral neuropathy due to chemotherapy 2019 Assessment & Plan (10/06/2020 11:52 AM SHODER FILLER): Patient has antecedent his documented history of peripheral neuropathy associated with prior chemotherapy usage for his head neck cancer. Assessment & Plan (09/08/2020 2:03 PM CDT): Patient has previously diagnosed peripheral neuropathy secondary to chemotherapy prescribed for prior head and neck cancer. His clinical manifestations at this time include sensory loss, muscular fatigue, and mild subjective weakness. Essential tremor 09/08/2020 Assessment & Plan (10/06/2020 11:52 AM SHODER FILLER): Patient has antecedent history of non disabling essential tremor. Medical intervention is not necessary at this time. Assessment & Plan (09/08/2020 2:04 PM CDT): Patient does exhibit mild horizontal head titubation. Is not disabling or cosmetically bothersome at this time. Therefore treatment is not necessary. Observation is appropriate from the neurological standpoint. Hypothyroidism 10/16/2019 Head and neck cancer 01/15/2018 Surgical History Surgery Date Site/Laterality Comments TUMOR REMOVAL Medical History Medical History Date Comments Peripheral neuropathy Cancer (HCC) Family History Medical History Relation Name Comments Colon cancer Father Diabetes Father Heart disease Father Anemia Mother Breast cancer Mother Cassy's thyroiditis Mother No Known Problems Sister Relation Name Status Comments Father Mother Alive Sister Alive Social History Tobacco Use Types Packs/Day Years Used Date Smoking Tobacco: Former Smokeless Tobacco: Never Personal Safety Answer Date Recorded Getting School Help Needed Not on file 02/07 Sex and Gender Information Value Date Recorded Sex Assigned at Not on file Legal Sex Male 11:54 AM CDT Gender Identity Not on file Sexual Orientation Not on file Obstetrics History Last Filed Vital Signs Vital Sign Reading Time Taken Comments Blood Pressure 140/96 10/06/2020 11:15 AM SHODER FILLER Pulse 81 10/06/2020 11:15 AM SHODER FILLER Temperature 37.1 C (98.7 F) 10/06/2020 11:15 AM SHODER FILLER Respiratory Rate - - Oxygen Saturation - - Inhaled Oxygen Concentration - - Weight 111.9 kg (246 lb 9.6 oz) 020 11:15 AM SHODER FILLER Height 175.3 cm (5' 9) 10/06/2020 11:1 5 AM SHODER FILLER Body Mass Index 36.42 10/06/2020 11:15 AM SHODER FILLER Plan of Treatment Not on file Insurance [employer] [place] Care Teams Flight Security Specialist Relationship Specialty Start Date End Date Robert Hernandez MD PCP - General Internal Medicine 08/09/20
--- OUTSIDE RECORDS SUMMARY | 2025-06-23 13:11 | XMS_ITS | Encounter Summary ---
Author Organization [facility] Address [address] [place] [address] Care Team Providers Care Ems Manager Name Role Phone Robert Hernandez MD Primary Care Provider [phone] Reason for Visit * Reason Comments Medication Refill Encounter Details Date Type Department Care Team (Late Contact Info) Description 08/26/2019 Refill [facility] Oncology [facility] [address] [place] [address] Devon Peoples MD [address] [place] [address] Social History Tobacco Use Types Packs/Day Years Used Date Smoking Tobacco: Former Cigarettes 0.5 15 1 12/25/1991 - 10/24/2007 Smokeless Tobacco: Never Alcohol Use Standard Drinks/Week Comments Yes 2 (1 standard drink = 0.6 oz pur e alcohol) Sex and Gender Information Value Date Recorded Sex Assigned at Not on file 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 Gender Identity Not on file Sexual Orientation Not on file 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 Not on file Not on file documented as of this encounter Plan of Treatment Upcoming Encounters Date Type Department Care Team (Late Contact Info) Description 06/23/2025 1:15 PM CDT Office Visit [facility] Oncology [facility] Hematology [facility] [address] [place] [address] Devon Peoples MD [address] [place] [address] documented as of this encounter Visit Diagnoses Not on filedocumented in this encounter Care Teams Ems Manager Relationship Specialty Start Date End Date Robert Hernandez MD [address] [place] [address] PCP - General Internal Medicine 10/22/17 documented as of this encounter
--- OUTSIDE RECORDS SUMMARY | 2025-06-23 13:11 | XMS_ITS | Clinical Summary ---
Author Organization [facility] Address [address] [facility] [place] [address] Care Team Providers Care Rayon Winder Name Role Phone Robert Hernandez MD Primary Care Provider [phone] Allergies No known active allergies Medications levothyroxine 50 mcg tablet TK 1 T PO QD 2 08/21/20 18 Active pilocarpine (SALAGEN) 5 mg Tablet TK 1 T PO D 3 08/17/20 18 Active omeprazole (PriLOSEC) 40 mg Capsule, Delayed Release(E.C.) TK 1 C PO QD 6 12/08/19 19 Active SF 5000 PLUS 1.1 % Cream BRUSH TEETH QD AFTER REGULAR BRUSHING. DO NOT RINSE MOUTH FOR 30 MINUTES AFTER USE 2 11/12/20 18 Active naltrexone (DEPADE) 50 mg tablet Take 50 mg by mouth daily. Active fluoride, sodium, (SF 5000 Plus) 1.1 % Cream SF 5000 Plus 1.1 % dental cream Active diclofenac sodium (VOLTAREN) 75 mg Tablet, Delayed Release (E.C.) Take 75 mg by mouth daily. Active atorvastatin (LIPITOR) 10 mg tablet TK 1 T PO QD 10/29/20 20 Active tiZANidine (ZANAFLEX) 2 mg Tablet tizanidine 2 mg tablet TAKE 1 TABLET BY MOUTH TWICE DAILY NEEDED Active Multivitamin Capsule multivitamin Active pregabalin (LYRICA) 75 mg Capsule TAKE 1 CAPSULE BY MOUTH THREE TIMES DAILY 90 Capsule 1 05/30/20 25 Active pregabalin (LYRICA) 75 mg Capsule TAKE 1 CAPSULE BY MOUTH THREE TIMES DAILY 90 Capsule 03/17/20 25 07/07/2 025 Discontinued Active Problems Problem Noted Date Diagnosed Date Gastric nodule 01/01/2019 Head and neck cancer 01/15/2018 Resolved Problems Problem Noted Date Diagnosed Date Resolved Date 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 01/15/2018 Encounters Date Type Department Care Team Description 06/22/2025 Orders Only [facility] Oncology [facility] [address] [place] [address] Devon Peoples MD History of head and neck cancer (Primary Dx) 06/08/2025 External Device Data STL ABSTRACTION Provider, Abstract 06/08/2025 External Device Data STL ABSTRACTION Provider, Abstract 06/07/2025 External Device Data STL ABSTRACTION Provider, Abstract 05/26/2025 Refill [facility] Oncology and [facility] [address] [place] [address] Bree Ferris MD 05/24/2025 External Device Data STL ABSTRACTION Provider, Abstract 05/17/2025 External Device Data STL ABSTRACTION Provider, Abstract 05/10/2025 External Device Data STL ABSTRACTION Provider, Abstract 04/19/2025 External Device Data STL ABSTRACTION Provider, Abstract 04/19/2025 External Device Data STL ABSTRACTION Provider, Abstract 04/14/2025 External Device Data STL ABSTRACTION Provider, Abstract 04/13/2025 External Device Data STL ABSTRACTION Provider, Abstract 04/12/2025 External Device Data STL ABSTRACTION Provider, Abstract from Last 3 Months Family History Medical History Relation Name Comments Diabetes Father Relation Name Status Comments Father Alive Mother Alive Sister Alive Social History Tobacco Use Types Packs/Day Years Used Date Smoking Tobacco: Former Cigarettes 0.5 15 1 12/25/1991 - 10/24/2007 Smokeless Tobacco: Never Alcohol Use Standard Drinks/Week Comments Yes 2 (1 standard drink = 0.6 oz pur e alcohol) Sex and Gender Information Value Date Recorded Sex Assigned at Not on file 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 Gender Identity Not on file Sexual Orientation Not on file 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 Not on file Not on file Last Filed Vital Signs Vital Sign Reading Time Taken Comments Blood Pressure 160/83 06/17/2024 12:58 PM CDT Pulse 73 06/17/2024 12:53 PM CDT Temperature 36.2 C (97.2 F) 06/17/2024 12:53 PM CDT Respiratory Rate 14 06/17/2024 12:53 PM CDT Oxygen Saturation 95% 06/17/2024 12:53 PM CDT Inhaled Oxygen Concentration - - Weight 109 kg (240 lb 6.4 oz) 06/17/2024 12:53 P M CDT Height 175.3 cm (5' 9) 05/08/2022 9:50 AM CDT Body Mass Index 35.5 05/08/2022 9:50 AM CDT Plan of Treatment Upcoming Encounters Date Type Department Care Team (Late st Contact Info) Description 06/23/2025 1:15 PM CDT Office Visit [facility] Oncology and Hematology [facility] [address] [facility] [address] [place] [address] Devon Peoples MD [address] [facility] [address] [place] [address] Health Maintenance Due Date Last Done Comments DTAP/TDAP/TD VACCINES (1 - Tdap) 1988 HEPATITIS B VACCINES (1 of 3 - 19+ 3-dose series) 03/24 COLORECTAL SCREENING 2014 Colorectal Cancer Screening 2014 FIT-DNA Q 3 years 2014 FIT/FOBT Q 1 year 2014 Flex Sig/CT Colonography Q 5 years 2014 ZOSTER VACCINE (1 of 2) 2019 Preventative Visit- Commercial 11/24/2024 INFLUENZA VACCINE (#1) 2025 Insurance [facility] BLUE ACCESS/TRUE BLUE PPO [facility] BLUE ACCESS/TRUE BLUE PPO Care Teams Rayon Winder Relationship Specialty Start Date End Date Robert Hernandez MD [facility] [place] [id number] PCP - General Internal Medicine 10/22/17
--- OUTSIDE RECORDS SUMMARY | 2025-06-23 13:11 | XMS_ITS | Encounter Summary ---
Author Organization [facility] [employer] [facility] Address [address] [place] [address] Care Team Providers Care Perinatal Coordinator Name Role Phone Robert Hernandez MD Primary Care Provider [phone] Reason for Visit * Reason Comments Medication Refill Encounter Details Date Type Department Care Team (Late Contact Info) Description 03/25/2022 Refill [facility] Oncology and Hematology [facility] [address] [place] [address] Devon Peoples MD [address] [place] [address] Head and neck cancer (CMS/HCC) Social History Tobacco Use Types Packs/Day Years Used Date Smoking Tobacco: Former Cigarettes 0.5 15 1 12/25/1991 - 10/24/2007 Smokeless Tobacco: Never Alcohol Use Standard Drinks/Week Comments Yes 2 (1 standard drink = 0.6 oz pur e alcohol) Sex and Gender Information Value Date Recorded Sex Assigned at Not on file 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 Gender Identity Not on file Sexual Orientation Not on file 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 Not on file Not on file documented as of this encounter Plan of Treatment Upcoming Encounters Date Type Department Care Team (Late Contact Info) Description 06/23/2025 1:15 PM CDT Office Visit [facility] Oncology [facility] [address] [place] [address] Devon Peoples MD [address] [facility] [address] [place] [address] documented as of this encounter Visit Diagnoses Diagnosis Head and neck cancer (CMS/HCC) Malignant neoplasm of head, face, and neck documented in this encounter Care Teams Perinatal Coordinator Relationship Specialty Start Date End Date Robert Hernandez MD [address] [place] [address] PCP - General Internal Medicine 10/22/17 documented as of this encounter
--- OUTSIDE RECORDS SUMMARY | 2025-06-23 13:11 | XMS_ITS | Encounter Summary ---
Author Organization [facility]3] [employer] [facility] Address [address] [place] [address] Care Team Providers Care Zoning Technician Name Role Phone Robert Hernandez MD Primary Care Provider [phone] Encounter Details Date Type Department Care Team (Late Contact Info) Description 06/22/2025 Orders Only [facility] Oncology [facility] [address] [place] [address] Devon Peoples MD [address] [place] [address] History of head and neck cancer (Primary Dx) Social History Tobacco Use Types Packs/Day Years Used Date Smoking Tobacco: Former Cigarettes 0.5 15 1 12/25/1991 - 10/24/2007 Smokeless Tobacco: Never Alcohol Use Standard Drinks/Week Comments Yes 2 (1 standard drink = 0.6 oz pur e alcohol) Sex and Gender Information Value Date Recorded Sex Assigned at Not on file 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 Gender Identity Not on file Sexual Orientation Not on file 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 Not on file Not on file documented as of this encounter Plan of Treatment Upcoming Encounters Date Type Department Care Team (Late Contact Info) Description 06/23/2025 1:15 PM CDT Office Visit [facility] Oncology [facility] [address] [place] [address] Devon Peoples MD [address] [place] [address] Scheduled Orders Name Type Priority Associated Diagnoses Orde r Schedule BASIC METABOLIC PANEL Lab Routine History of head and neck cancer Expected: 06/22/2025, Expires: 06/22/2026 CBC WITH DIFFERENTIAL Lab Routine History of head and neck cancer Expected: 06/22/2025, Expires: 06/22/2026 documented as of this encounter Visit Diagnoses Diagnosis History of head and neck cancer- Primary documented in this encounter Care Teams Zoning Technician Relationship Specialty Start Date End Date Robert Hernandez MD [address] [place] [phone] PCP - General Internal Medicine 10/22/17 documented as of this encounter
--- OUTSIDE RECORDS SUMMARY | 2025-06-23 13:11 | XMS_ITS | Referral Summary ---
Author Organization [facility] Address [address] [place] [address] Care Team Providers Care Pheresis Nurse Name Role Phone Robert Hernandez MD Primary Care Provider [phone] Allergies No known active allergies Medications diclofenac [...] 09/08/2020 Assessment & Plan (10/06/2020 11:51 AM PUNCH BOX TENDER): Patient's history of episodic headaches with clinical [...] of possible cancer spread. He has tried emkv-gmp-sfpaaal analgesics without success. Given his history of [...] 2019 Assessment & Plan (10/06/2020 11:52 AM PUNCH BOX TENDER): Patient has antecedent his documented history of [...] 09/08/2020 Assessment & Plan (10/06/2020 11:52 AM PUNCH BOX TENDER): Patient has antecedent history of non disabling essential tremor. Medical intervention is not necessary at this time. Assessment & Plan (09/08/2020 2:04 PM CDT): Patient does exhibit mild horizontal head titubation. Is not disabling or cosmetically bothersome at this time. Therefore treatment is not necessary. Observation is appropriate from the neurological standpoint. Hypothyroidism 10/16/2019 Head and neck cancer 01/15/2018 Social History Tobacco Use Types Packs/Day Years Used Date Smoking Tobacco: Former Smokeless Tobacco: Never Personal Safety Answer Date Recorded Getting School Help Needed Not on file 02/07 Sex and Gender Information Value Date Recorded Sex Assigned at Not on file Legal Sex Male 11:54 AM CDT Gender Identity Not on file Sexual Orientation Not on file Last Filed Vital Signs Vital Sign Reading Time Taken Comments Blood Pressure 140/96 10/06/2020 11:15 AM PUNCH BOX TENDER Pulse 81 10/06/2020 11:15 AM PUNCH BOX TENDER Temperature 37.1 C (98.7 F) 10/06/2020 11:15 AM PUNCH BOX TENDER Respiratory Rate - - Oxygen Saturation - - Inhaled Oxygen Concentration - - Weight 111.9 kg (246 lb 9.6 oz) 020 11:15 AM PUNCH BOX TENDER Height 175.3 cm (5' 9) 10/06/2020 11:1 5 AM PUNCH BOX TENDER Body Mass Index 36.42 10/06/2020 11:15 AM PUNCH BOX TENDER Plan of Treatment Not on file Insurance [employer] Care Teams Pheresis Nurse Relationship Specialty Start Date End Date Robert Hernandez MD PCP - General Internal Medicine 08/09/20
--- OUTSIDE RECORDS SUMMARY | 2025-06-23 13:11 | XMS_ITS | Encounter Summary ---
Author Organization [facility] Address [address] [place] [address] Care Team Providers Care Filter Press Supervisor Name Role Phone Robert Hernandez MD Primary Care Provider [phone] Encounter Details Date Type Department Care Team (Late st Contact Info) Description 11/05/2017 Chart Note [facility] Radiation Therapy [address] [place] [address] [place] [address] [place] [address] Social History Tobacco Use Types Packs/Day Years Used Date Smoking Tobacco: Former Cigarettes 0.5 15 1 12/25/1991 - 10/24/2007 Smokeless Tobacco: Never Alcohol Use Standard Drinks/Week Comments Yes 2 (1 standard drink = 0.6 oz pur e alcohol) Sex and Gender Information Value Date Recorded Sex Assigned at Not on file 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 Gender Identity Not on file Sexual Orientation Not on file 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 file Not on file documented as of this encounter Plan of Treatment Upcoming Encounters Date Type Department Care Team (Late st Contact Info) Description 06/23/2025 1:15 PM CDT Office Visit [facility] Oncology and Hematology - [place] [address] [facility] [address] [place] [address] Devon Peoples MD [address] [facility] [address] [place] [address] documented as of this encounter Visit Diagnoses Not on filedocumented in this encounter Care Teams Filter Press Supervisor Relationship Specialty Start Date End Date Robert Hernandez MD [address] [place] [phone] PCP - General Internal Medicine 10/22/17 documented as of this encounter
[2025-06-23 13:17] LABS: Hematocrit 41.5 % (42.0-52.0); Hemoglobin 14.2 g/dL (14.0-18.0); Immature Granulocyte Percent A 0.5 % (0-0.5); Lymphocytes Absolute Auto 1.41 K/mm3 (0.9-3.2); Mean Corpuscular HGB Conc 34.2 g/dl (32-36); Mean Corpuscular Hemoglobin 31.4 pg (26-34); Mean Corpuscular Volume 91.8 fl (80-100); Nucleated Red Blood Cells Absolute Auto 0.000 K/mm3 (0.0-0.012); Nucleated Red Blood Cells Perc 0.0 % (0.0-0.2); Platelet Count Result 291 k/mm3 (150-375); Red Blood Count 4.52 M/mm3 (4.6-6.20); White Blood Count 6.0 K/mm3 (4.5-10.0)
[2025-06-23 13:20] LABS: Blood Urea Nitrogen 15 mg/dL (8-26); Carbon Dioxide 28 mmol/L (22-30); Chloride 103 mmol/L (98-109); Estimated Glomerular Filt Rate > 60; Glucose 106 mg/dL (70-105); Ionized Calcium (POC) 1.19 mmol/L (1.11-1.31); Potassium 4.7 mmol/L (3.5-4.9); Sodium 140 mmol/L (138-146)
== END 2025-06-23 13:07 | disposition home or self-care (01) ==
LOC: ANHLAB 13:07
PROVIDERS: PCP Internal Medicine; Visit Provider Internal Medicine Hematology & Oncology
DX: Z85.89 Personal history of malignant neoplasm of other organs and systems (principal)
CPT/HCPCS: 36415; 80047; 85025